=== PATIENT | female | born 1975 | race Caucasian/White ===

== ENCOUNTER 2021-07-20 10:53 | Observation (INO) | payer OTHER ==
[2021-07-20] MEDS ORDERED: methylPREDNISolone NA SUCC 125 MG/2 ML VIAL IVPB ONE (12:37)
[2021-07-20] MEDS ORDERED: FAMOTIDINE 20 MG/50 ML IVPB 20 MG/50 ML MG IVPB ONE ×2 (12:37→12:48)
[2021-07-20] MEDS ORDERED: methylPREDNISolone NA SUCC 125 MG/2 ML VIAL ONE (12:48)
[2021-07-20 13:03] LABS: BASO % 0.2 % (0-2.0); EOS % 11.8 % (0-4.5); HEMATOCRIT 32.4 % (32.4-45.2); HEMOGLOBIN 10.6 GM/dL (10.7-15.3); LYMPH % 18.3 % (8-40); MCHC 32.7 g/dl (32.0-36.0); MEAN CELL VOLUME 73.3 fl (80-96); MONO % 6.7 % (3.8-10.2); PLATELET COUNT 193 10^3/uL (134-434); RBC 4.42 M/mm3 (3.60-5.2); RDW 17.4 % (11.6-15.6); WHITE BLOOD COUNT 6.3 K/mm3 (4.0-10.0)
[2021-07-20 13:33] LABS: ALBUMIN 3.8 g/dl (3.4-5.0)
[2021-07-20 13:34] LABS: BLOOD UREA NITROGEN 14.6 mg/dL (7-18)
[2021-07-20] MEDS ORDERED: ALBUTEROL SO4 2.5/IPRATROPIUM 0.5 INH SOL 3 ML VIAL.NEB. NEB ONE ×2 (13:35→13:54)
[2021-07-20 13:36] LABS: CREATININE 0.5 mg/dL (0.55-1.3)
[2021-07-20] MEDS ORDERED: ACETAMINOPHEN 1000 MG/100 ML BAG IVPB ONE (13:36)
[2021-07-20 13:38] LABS: BILIRUBIN,TOTAL 1.1 mg/dL (0.2-1); TOT PROT 7.2 g/dl (6.4-8.2)
[2021-07-20] MEDS ORDERED: ACETAMINOPHEN INJECTION 100 ML IVPB ONE (13:54)
[2021-07-20] MEDS ORDERED: ACETAMINOPHEN 325 MG TABLET (FP) PO PRN (15:45)
[2021-07-20] MEDS ORDERED: ALBUTEROL SO4 2.5/IPRATROPIUM 0.5 INH SOL 3 ML VIAL.NEB. NEB PRN (15:48)
[2021-07-20] MEDS ORDERED: diphenhydrAMINE HCL 25 MG CAPSULE (FP) PO PRN (15:48)
[2021-07-20] MEDS ORDERED: methylPREDNISolone NA SUCC 40 MG/1 ML VIAL ONE (20:30)
[2021-07-20] MEDS: methylPREDNISolone NA SUCC 40 MG/1 ML VIAL IVPUSH SCH (20:35)
[2021-07-20 22:07] VITALS: BMI 48.0
[2021-07-21] MEDS: methylPREDNISolone NA SUCC 40 MG/1 ML VIAL IVPUSH SCH ×3 (03:04→15:40)
[2021-07-21 07:32] LABS: BASO % 0.1 % (0-2.0); EOS % 0.8 % (0-4.5); HEMATOCRIT 32.6 % (32.4-45.2); HEMOGLOBIN 10.9 GM/dL (10.7-15.3); LYMPH % 10.2 % (8-40); MCH 24.4 pg (25.7-33.7); MCHC 33.3 g/dl (32.0-36.0); MEAN CELL VOLUME 73.3 fl (80-96); MEAN PLT VOLUME 9.4 fl (7.5-11.1); MONO % 1.5 % (3.8-10.2); NEUT % 87.4 % (42.8-82.8); PLATELET COUNT 217 10^3/uL (134-434); RBC 4.45 M/mm3 (3.60-5.2); WHITE BLOOD COUNT 9.6 K/mm3 (4.0-10.0)
[2021-07-21 07:38] LABS: CALCIUM 8.5 mg/dL (8.5-10.1)
[2021-07-21 07:39] LABS: ALBUMIN 3.6 g/dl (3.4-5.0); BLOOD UREA NITROGEN 12.7 mg/dL (7-18); MAGNESIUM 2.2 mg/dL (1.8-2.4)
[2021-07-21 07:42] LABS: CREATININE 0.5 mg/dL (0.55-1.3)
[2021-07-21 07:43] LABS: TOT PROT 7.4 g/dl (6.4-8.2)
[2021-07-21] MEDS ORDERED: FAMOTIDINE 20 MG TABLET PO SCH (10:00)
[2021-07-21] MEDS ORDERED: PRENATAL VITAMINS W/ FOLIC ACID TABLET (FP) PO SCH (10:00)
[2021-07-21] MEDS ORDERED: ENOXAPARIN NA (PORCINE) 40 MG/0.4 ML DISP.SYRIN SQ SCH (10:00)
[2021-07-21 15:00] VITALS: BP 125/78; PULSE 79; TEMP 98.8
== END 2021-07-21 17:34 | disposition home or self-care (01) ==
LOC: JER 10:53 → INTOOBSV 14:54 → JERBED 14:54 → UNDOADMOB 14:54 → JERBED 15:45 → J4W 21:50
PROVIDERS: ADMIT Internal Medicine; ATTEND Internal Medicine
PROC: 3E033NZ Introduction of Analgesics, Hypnotics, Sedatives into Peripheral Vein, Percutaneous Approach (ICD-10-PCS; principal; 2021-07-20)
PROC: 3E033GC Introduction of Other Therapeutic Substance into Peripheral Vein, Percutaneous Approach (ICD-10-PCS; 2021-07-20)
PROC: 3E0F7GC Introduction of Other Therapeutic Substance into Respiratory Tract, Via Natural or Artificial Opening (ICD-10-PCS; 2021-07-20)
PROC: 3E023GC Introduction of Other Therapeutic Substance into Muscle, Percutaneous Approach (ICD-10-PCS; 2021-07-20)
DX: T78.2XXA Anaphylactic shock, unspecified, initial encounter (principal); R22.1 Localized swelling, mass and lump, neck; I10 Essential (primary) hypertension; R06.02 Shortness of breath; E66.01 Morbid (severe) obesity due to excess calories; Z68.42 Body mass index [BMI] 45.0-49.9, adult
CPT/HCPCS: 36415; 71045-TC-FY; 80053; 83036; 83735; 84443; 84484; 85025; 93005; 93010; 94640; 96365; 96372; 96375; 99291; C9803; G0378; U0003; U0005

== ENCOUNTER 2025-03-03 20:35 | Observation (INO) | payer OTHER ==
[2025-03-03] MEDS ORDERED: METOCLOPRAMIDE HCL INJECTION 10 MG/2 ML VIAL ONE (21:58)
[2025-03-03] MEDS ORDERED: ACETAMINOPHEN INJECTION 100 ML ONE (21:58)
[2025-03-03 22:34] LABS: ABSOLUTE IMMATURE GRANULOCYTES 0.01 x10^3/uL (0.0-0.031); BASOPHILS # 0.05 x10^3/uL (0.01-0.08); EOSINOPHIL % 5.3 % (0.7-5.8); EOSINOPHILS # 0.38 x10^3/uL (0.04-0.36); MCHC 30.9 g/dl (32.2-35.5); MEAN CELL VOLUME 84.5 fl (79.4-94.8); MEAN PLT VOLUME 11.8 fl (9.4-12.3); MONOCYTE # 0.55 x10^3/uL (0.24-0.86); MONOCYTE % 7.6 % (4.7-12.5); RDW 14.7 % (12.2-17.1)
[2025-03-03] MEDS: ACETAMINOPHEN 1000 MG/100 ML BAG IVPB ONE (22:40)
[2025-03-03] MEDS ORDERED: diazePAM CARPU-JECT 10 MG/2 ML DISP.SYRIN ONE (22:47)
[2025-03-03 22:50] LABS: GLUCOSE,RANDOM 89.0 mg/dL (74-106)
[2025-03-03 22:51] LABS: TOT PROT 7.6 g/dl (6.4-8.2)
[2025-03-03 22:52] LABS: CO2 24.0 mmol/L (21-32)
[2025-03-03 22:53] LABS: ALK PHOS 68.0 U/L (40-150)
[2025-03-03 22:56] LABS: CREATININE 0.92 mg/dL (0.55-1.3); SGOT/AST 27.0 U/L (5-34); SGPT/ALT 23.0 U/L (0-55)
[2025-03-03 23:17] LABS: HCV DIAGNOSTIC IN-HOUSE W/RFLX NON-REACTIVE (NONREACTIVE)
[2025-03-03 23:18] LABS: HIV INTERPRETATION NEGATIVE (NEGATIVE)
[2025-03-04] MEDS: METOCLOPRAMIDE HCL INJECTION 10 MG/2 ML VIAL IVPUSH ONE (00:10)
[2025-03-04] MEDS ORDERED: PANTOPRAZOLE SODIUM 40 MG/100 ML BAG IVPB ONE (00:11)
[2025-03-04] MEDS: PANTOPRAZOLE SODIUM 40 MG VIAL IVPUSH ONE (00:41)
[2025-03-04] MEDS ORDERED: KETOROLAC TROMETHAMINE 15 MG/ML VIAL ONE (01:16)
[2025-03-04] MEDS: KETOROLAC TROMETHAMINE 15 MG/ML VIAL IVPUSH ONE (01:24)
[2025-03-04 02:52] VITALS: BMI 44.1
[2025-03-04 06:51] VITALS: RESP 18
[2025-03-04 07:36] LABS: ABSOLUTE IMMATURE GRANULOCYTES 0.01 x10^3/uL (0.0-0.031); BASOPHILS # 0.05 x10^3/uL (0.01-0.08); EOSINOPHIL % 7.4 % (0.7-5.8); EOSINOPHILS # 0.45 x10^3/uL (0.04-0.36); MCHC 30.9 g/dl (32.2-35.5); MEAN CELL VOLUME 84.4 fl (79.4-94.8); MEAN PLT VOLUME 12.3 fl (9.4-12.3); MONOCYTE # 0.63 x10^3/uL (0.24-0.86); MONOCYTE % 10.4 % (4.7-12.5); RDW 14.8 % (12.2-17.1)
[2025-03-04 08:08] LABS: GLUCOSE,RANDOM 73.0 mg/dL (74-106)
[2025-03-04 08:09] LABS: TOT PROT 6.5 g/dl (6.4-8.2)
[2025-03-04 08:10] LABS: CO2 24.0 mmol/L (21-32)
[2025-03-04 08:11] LABS: ALK PHOS 58.0 U/L (40-150)
[2025-03-04 08:14] LABS: CREATININE 0.72 mg/dL (0.55-1.3); SGOT/AST 23.0 U/L (5-34); SGPT/ALT 17.0 U/L (0-55)
[2025-03-04] MEDS: amLODIPine BESYLATE 10 MG TABLET (FP) PO SCH (09:17)
[2025-03-04] MEDS ORDERED: amLODIPine BESYLATE 10 MG TABLET (FP) PO SCH (10:00)
[2025-03-04 15:30] VITALS: BP 110/78; PULSE 93; TEMP 97.7
== END 2025-03-04 16:24 | disposition home or self-care (01) ==
LOC: JER 20:35 → JERBED 03-04 00:05 → J4W 03-04 01:55
PROVIDERS: ADMIT Student in an Organized Health Care Education/Training Program; ATTEND Internal Medicine
PROC: 3E033NZ Introduction of Analgesics, Hypnotics, Sedatives into Peripheral Vein, Percutaneous Approach (ICD-10-PCS; principal; 2025-03-04)
PROC: 3E033GC Introduction of Other Therapeutic Substance into Peripheral Vein, Percutaneous Approach (ICD-10-PCS; 2025-03-04)
DX: I16.1 Hypertensive emergency (principal); R07.9 Chest pain, unspecified; E80.6 Other disorders of bilirubin metabolism; Z91.148 Patient's other noncompliance with medication regimen for other reason
CPT/HCPCS: 36415; 70450-TC; 71046-TC-FY; 80053; 82248; 82962; 83690; 83880; 84443; 84484; 85025; 86803; 87389; 93005; 93010; 96374; 96375; 99291; G0378